=== PATIENT | male | born 2000 ===

== ENCOUNTER 2021-12-19 06:47 | Outpatient (CLI) | payer OTHER ==
[2021-12-19] VITALS (8 sets, daily range): BP systolic 107–120; BP diastolic 61–83; PULSE 62–80; TEMP 97.4
[~2021-12-19] VITALS: Ht 188 cm; Wt 73.0 kg
[2021-12-19] MEDS ORDERED: VITAMIN D 50,1.25 MG PO (07:07)
[2021-12-19] MEDS ORDERED: AUBAGIO14 MG PO (07:08)
[2021-12-19 09:35] LABS: GLUCOSE,CSF 61 mg/dL (40-70); TOTAL PROTEIN,CSF 22 mg/dL (15-45)
[2021-12-19 09:44] LABS: CSF APPEARANCE CLEAR; CSF COLOR COLORLESS
--- NOTE | 2021-12-19 09:50 | NUR ---
DC instructions reviewed with pt. He expresses understanding. He continues to deny headache or other concerns. Has tolerated PO without issue. He is steady on feet. Assisted out to family's car by wheelchair with belongings.
[2021-12-19 10:05] LABS: CSF MONONUCLEAR 100 % (70-100); CSF POLYMORPHONUCLEAR 0 % (0-6)
[2021-12-19 10:12] LABS: CSF RBC 209 /mm3 (0-0)
[2021-12-22 16:12] LABS: CSF OLIG BD INTERPRETATION 1 bands (<2); SE OLIGOCLONAL BANDING 0 bands (())
== END 2021-12-19 10:00 | disposition home or self-care (01) ==
LOC: COL.RAD 06:47
PROVIDERS: Psychiatry & Neurology Neurology
DX: G35 Multiple sclerosis (principal)